=== PATIENT | female | born 1965 | race Caucasian/White ===

== ENCOUNTER 2024-05-13 21:28 | Day surgery (SDC) | payer BC, SELFPAY ==
[2024-05-13] VITALS (15 sets, daily range): BP systolic 116–142; BP diastolic 63–93; PULSE 46–69; RESP 16–24; TEMP 35.8; O2SAT 91–100; BMI 27.4
--- NOTE | 2024-05-13 21:49 | ED.GENADULT ---
HPI - General Adult General Chief complaint: Abdominal Pain Stated complaint: Abdominal pain Time Seen by Provider: 05/13/24 21:31 History of Present Illness HPI narrative: c/o upper abdominal pain started about 2 hours ago while at rest. started abruptly denies any N/V/D/F/C. today. 59-year-old woman presenting to the emergency department with nearly 3 hours of upper abdominal pain. Relatively abrupt onset. Has not been having stomach pains recently. No vomiting but is nauseated. No diarrhea. No constipation. No fever. This is intense pressure that she is feeling. It is not radicular though she starting to have some low back pain. She does have history of chronic low back pain and multiple surgeries. She is not having pain radiating into the lower abdomen or her legs. Does not drink alcohol. Only abdominal surgery was a . Related Data Home Medications ?Medication ?Instructions ?Recorded ?Confirmed apremilast 30 mg tablet (Otezla) 30 mg PO BID 05/13/24 05/13/24 levothyroxine 100 mcg tablet 100 mcg PO DAILY 05/13/24 05/13/24 (Synthroid) metformin 500 mg tablet,extended 500 mg PO BID 05/13/24 05/13/24 release 24 hr pravastatin 40 mg tablet 40 mg PO DAILY 05/13/24 05/13/24 Allergies Allergy/AdvReac Type Severity Reaction Status Date / Time Corticosteroids AdvReac Intermediate Verified 05/13/24 21:34 (Glucocorticoids) Penicillins AdvReac Vomiting Verified 05/13/24 21:34 Review of Systems Status of ROS: Reports: 6 or more systems reviewed and unremarkable except as noted in History and below [facility] Social History Smoking Status: Never smoker Second hand tobacco smoke exposure: No How often do you have a drink containing alcohol: never AUDIT-C Alcohol total score: 0 Non-prescribed substance use: denies use Exam Narrative: Exam Narrative: Pleasant. Labored in her breathing and writhing in apparent discomfort on the bed. Lips are little dry. Tattoo on right forearm. Skin otherwise warm and dry. No jaundice. No scleral icterus. Well-perfused. Heart in regular rate rhythm. Abdomen is soft. She is quite tender in the central aspect of the epigastrium. Not actually with right upper quadrant pain. Const: Vital Signs, click to edit/add: Vital Signs - 24 hr 05/13/24 21:37 05/13/24 22:21 05/13/24 22:22 Temperature 96.5 F L Pulse Rate 55 L 54 L Pulse Rate [Pulse Oximeter] 69 Respiratory Rate 24 Blood Pressure 133/78 Blood Pressure [Le ft Upper Arm] 142/93 H Pulse Oximetry 96 98 98 Oxygen Delivery Me thod Room Air 05/13/24 22:30 05/13/24 22:32 05/13/24 22:46 Temperature Pulse Rate 53 L 58 L 46 L Pulse Rate [Pulse Oximeter] Respiratory Rate Blood Pressure 141/66 H Blood Pressure [Le ft Upper Arm] Pulse Oximetry 100 100 96 Oxygen Delivery Me thod 05/13/24 22:47 05/13/24 23:00 05/13/24 23:01 Temperature Pulse Rate 53 L 55 L 55 L Pulse Rate [Pulse Oximeter] Respiratory Rate Blood Pressure 128/63 120/68 Blood Pressure [Le ft Upper Arm] Pulse Oximetry 94 91 Oxygen Delivery Me thod 05/13/24 23:02 05/13/24 23:28 05/13/24 23:30 Temperature Pulse Rate 60 65 64 Pulse Rate [Pulse Oximeter] Respiratory Rate Blood Pressure Blood Pressure [Le ft Upper Arm] Pulse Oximetry 91 93 91 Oxygen Delivery Me thod 05/13/24 23:32 05/13/24 23:45 05/13/24 23:47 Temperature Pulse Rate 58 L 59 L 61 Pulse Rate [Pulse Oximeter] Respiratory Rate 16 Blood Pressure 121/72 116/72 Blood Pressure [Le ft Upper Arm] Pulse Oximetry 94 96 91 Oxygen Delivery Me thod Room Air 05/14/24 00:00 05/14/24 00:02 05/14/24 00:02 Temperature Pulse Rate 58 L 50 L 50 L Pulse Rate [Pulse Oximeter] Respiratory Rate Blood Pressure 121/66 121/66 Blood Pressure [Le ft Upper Arm] Pulse Oximetry 96 93 93 Oxygen Delivery Me thod 05/14/24 00:02 05/14/24 00:15 Temperature Pulse Rate 50 L 58 L Pulse Rate [Pulse Oximeter] Respiratory Rate Blood Pressure 121/66 Blood Pressure [Le ft Upper Arm] Pulse Oximetry 93 91 Oxygen Delivery Me thod Documenting provider has reviewed patient's vital signs: yes Course Vital Signs Vital signs: Initial Vital Signs Temperature 96.5 F L 05/13/24 21:37 Temperature Source Temporal Artery Scan 05/13/24 21:37 Pulse Rate 69 05/13/24 21:37 Respiratory Rate 24 05/13/24 21:37 Blood Pressure 142/93 H 05/13/24 21:37 Blood Pressure Mean 109 H 05/13/24 21:37 Blood Pressure Position Supine 05/13/24 21:37 Pulse Oximetry 96 05/13/24 21:37 Oxygen Delivery Method Room Air 05/13/24 21:37 Vital Signs Temperature 96.5 F L 05/13/24 21:37 Pulse Rate 69 05/13/24 21:37 Respiratory Rate 24 05/13/24 21:37 Blood Pressure 142/93 H 05/13/24 21:37 Pulse Oximetry 96 05/13/24 21:37 Oxygen Delivery Method Room Air 05/13/24 21:37 Temperature 96.5 F L 05/13/24 21:37 Pulse Rate 58 L 05/14/24 00:15 Respiratory Rate 16 05/13/24 23:32 Blood Pressure 121/66 05/14/24 00:02 Pulse Oximetry 91 05/14/24 00:15 Oxygen Delivery Method Room Air 05/13/24 23:32 Medications Administered Medications: Generic Name Dose Route Start Last Admin Trade Name Freq PRN Reason Stop Dose Admin Hydromorphone HCl 0.5 mg 05/14/24 00:43 05/14/24 00:50 Hydromorphone 0.5 Mg/0.5 Ml Inj IVP 0.5 mg ONCE PRN Administration Pain Piperacillin Sod/Tazobactam 100 mls @ 200 mls/hr 05/14/24 01:46 05/14/24 02:00 Sod 3.375 gm/ Sodium Chloride IVPB 05/14/24 01:47 200 mls/hr ONCE ONE Administration Discontinued Medications Generic Name Dose Route Start Last Admin Trade Name Freq PRN Reason Stop Dose Admin Diphenhydramine HCl 12.5 mg 05/13/24 21:54 05/13/24 22:05 Diphenhydramine 50 Mg/Ml Inj IVP 05/13/24 21:55 12.5 mg ONCE ONE Administration Hydromorphone HCl 1 mg 05/13/24 22:27 05/13/24 22:31 Hydromorphone 0.5 Mg/0.5 Ml Inj IVP 05/13/24 22:28 1 mg ONCE ONE Administration Sodium Chloride 500 mls @ 1,000 mls/hr 05/13/24 21:54 05/13/24 22:45 0.9 % Sodium Chloride 500 Ml IV 05/13/24 22:23 Infused .Q30M ONE Infusion Morphine Sulfate 4 mg 05/13/24 21:54 05/13/24 22:08 Morphine 4 Mg/Ml Inj IVP 05/13/24 21:55 4 mg ONCE ONE Administration Ondansetron HCl 4 mg 05/13/24 21:54 05/13/24 22:08 Ondansetron 2 Mg/Ml Inj IVP 05/13/24 21:55 4 mg ONCE ONE Administration Medical Decision Making MDM Narrative Medical decision making narrative: First in differential would be gallbladder disease in biliary colic. Suppose this could be pancreatitis as well. Does not sound as though has typical risk factors here though. This could be cardiac in etiology. Maybe a dissection. Ulcer? Try to get her more comfortable. Place IV. Start with morphine and diphenhydramine given severe nausea with oxycodone in the past, Zofran as well. Labs with follow-up appropriate imaging. On reassessment morphine was not particularly helpful of pain. Ordered then for mg of Dilaudid. This is very helpful. White count is not elevated and neither are transaminases. Lipase pending. Requested abdomen pelvis contrasted CT scan at this point considering differential as above. I did review these images personally. Appears to have some pericholecystic fluid/edema. Radiology over-read as below TECHNIQUE: CT Abdomen and pelvis with i.v. contrast. Coronal and sagittal reformats were obtained. CONTRAST: 83 mL Isovue 370 COMPARISON: 11/13/2020 FINDINGS: Lower chest: Unremarkable. Liver: Unremarkable. Spleen: Unremarkable. Pancreas: Unremarkable. Gallbladder: The gallbladder is unremarkable in appearance but there is suspected trace pericholecystic fluid interposed between the gallbladder and the liver. Kidney: Unremarkable. No kidney or ureteral stones or obstruction seen. Adrenal: Unremarkable. Bowel: Severe diverticulosis of the sigmoid colon is present with no evidence of diverticulitis. The appendix is normal in appearance and size. Vascular: Unremarkable. Lymph: Unremarkable. Peritoneum: Unremarkable. No pneumoperitoneum is seen. No significant ascites is noted. Pelvis: Unremarkable. Soft tissue: Unremarkable. Bone: Anterior and posterior spinal fusion of L5-S1 is noted. IMPRESSION: 1. The gallbladder is unremarkable in appearance but there is suspected trace pericholecystic fluid interposed between the gallbladder and the liver. If there is pain or tenderness in the right upper quadrant, assessment with ultrasound is recommended. Will try to characterize this further with ultrasound. Might need another dosing of pain medication as had appears to be creeping up Discussed findings with boot and shoe repairman. Did personally also review images. Prelim noting rather thickened gallbladder wall and a sludge pile of some sort at the gallbladder neck. Formal measurements pending. TECHNIQUE: Ultrasound abdomen limited. COMPARISON: Same day CT abdomen and pelvis. FINDINGS: Gallbladder: Echogenic dependent gallbladder lesion measuring up to 8 mm. No hypervascular stalk demonstrated. No definite posterior shadowing. No images definitely demonstrating mobility. Gallbladder wall thickening measuring up to 5 mm. Trace pericholecystic fluid. Concrete Curer does not comment on sonographic Murry`s sign. Common bile duct: 6.5 mm. No sonographically apparent choledocholithiasis. IMPRESSION: 1. Echogenic dependent gallbladder lesion measuring up to 8 mm that is favored to represent a small polyp, less likely cholelithiasis. 2. Gallbladder wall thickening with trace pericholecystic fluid, which is nonspecific and could be secondary to acute cholecystitis, patient hydration status, or underlying hepatic disease. Concrete Curer does not comment on sonographic Murry`s sign. HIDA scan could be considered to more definitively rule in/out acute cholecystitis. 3. Prominent CBD, but no sonographic evidence of choledocholithiasis. Have discussed all findings with on-call surgeon. Appears to have cholecystitis. Anticipating admission for likely cholecystectomy in the morning. Hospitalist accepting. Test-dosing Zosyn given allergy which so far has not resulted in any reaction. Medical Records Medical records reviewed: Yes I reviewed the patient's medical records Lab Data Lab results reviewed: Yes I reviewed the patient's lab results Labs: Lab Results 05/13/24 05/13/24 05/14/24 Range/Units 22:00 22:47 01:15 WBC 6.74 (4.50-11.00) K/uL RBC 5.09 (4.00-5.20) m/uL Hgb 14.1 (12.0-16.0) gm/dL Hct 43.7 (33.0-51.0) % MCV 86 (80-100) fL MCH 28 (26-34) pg MCHC 32 (32-36) gm/dL RDW Coeff of Tricia 13.4 (11.5-15.5) % Plt Count 234 (140-440) K/uL Neut % (Auto) 52.2 (42.0-72.0) % Lymph % (Auto) 34.1 (20-44) % [place] % (Auto) 10.5 (0.0-11.0) % Eos % (Auto) 2.1 (0.0-7.0) % Baso % (Auto) 0.7 (0.0-3.0) % Neut # (Auto) 3.51 (1.7-7.0) K/uL Lymph # (Auto) 2.30 (0.90-2.90) K/uL [place] # (Auto) 0.70 (0.00-0.90) K/UL Eos # (Auto) 0.14 (0.00-0.50) K/uL Baso # (Auto) 0.05 (0.00-0.30) K/uL Abs Immat Gran (auto) 0.03 (0.00-0.30) K/uL Imm/Tot Granulo (auto) 0.4 % D-Dimer Quant (PE/DVT) 0.33 (0.00-0.50) ug/ml Sodium 139 (135-149) mmol/L Potassium 3.9 (3.6-5.1) mmol/L Chloride 107 (96-114) mmol/L Carbon Dioxide 21 (20-32) mmol/L Anion Gap 11 (7-15) mEq/L BUN 17 (7-30) mg/dL Creatinine 0.7 (0.5-1.5) mg/dL Estimated Creat Clear 55.31 Estimated GFR 98 ml/min Glucose 161 H (60-115) mg/dL Calcium 9.7 (8.4-10.6) mg/dL Total Bilirubin 0.1 (0.1-1.5) mg/dL Direct Bilirubin 0.1 (0.0-0.5) mg/dL AST 19 (12-35) U/L ALT 17 (4-35) U/L Alkaline Phosphatase 131 (40-150) U/L Troponin I < 0.01 L (0.01-0.04) ng/mL Total Protein 7.2 (6.0-8.3) g/dL Albumin 4.4 (3.3-5.0) g/dL Lipase 193 (23-300) U/L Urine Color Yellow (Yellow) Urine Appearance Clear (Clear) Urine pH 7.5 (5.0-8.5) Ur Specific [place] 1.020 (1.000-1.030) Urine Protein Negative (Negative) Urine Glucose (UA) Negative (Negative) Urine Ketones Trace A (Negative) Urine Blood Trace-intact A (Negative) Urine Nitrite Negative (Negative) Urine Bilirubin Negative (Negative) Urine Urobilinogen 0.2 (0.2-1.0) Ur Leukocyte Esterase Negative (Negative) Urine RBC 0-2 (0-2) Urine WBC 0-2 (0-5) Ur Squamous Epith Cells Few (None-Few) Amorphous Sediment Moderate A (None) Urine Bacteria None (None) Lab Acknowledgement Test Added Test Added Discharge Plan Discharge Clinical Impression: Acute cholecystitis, Abdominal pain Patient Disposition: Admitted As Observation Condition: Stable
[2024-05-13] MEDS: diphenhydrAMINE 50 MG/ML inj 12.5 MG IVP (22:05)
[2024-05-13] MEDS: ONDANSETRON 2 MG/ML inj 4 MG IVP (22:08)
[2024-05-13] MEDS: MORPHINE 4 MG/ML INJ IVP (22:08)
[2024-05-13] MEDS: 0.9 % SODIUM CHLORIDE 500 ML 500 ML 1000 ML IV (22:14)
[2024-05-13 22:29] LABS: Albumin* 4.4 g/dL (3.3-5.0)
[2024-05-13 22:30] LABS: Chloride* 107 mmol/L (96-114); Potassium* 3.9 mmol/L (3.6-5.1); Sodium* 139 mmol/L (135-149)
[2024-05-13] MEDS: HYDROmorphone 0.5 mg/0.5 ml inj 1 MG IVP (22:31)
[2024-05-13 22:32] LABS: Creatinine* 0.7 mg/dL (0.5-1.5); Est. Creatinine Clearance* 55.31; Estimated Glomerular Filt Rate 98 ml/min
[2024-05-13 22:33] LABS: Alanine Aminotransferase* 17 U/L (4-35); Alkaline Phosphatase* 131 U/L (40-150); Anion Gap 11 mEq/L (7-15); Aspartate Amino Transferase* 19 U/L (12-35); Bilirubin Direct* 0.1 mg/dL (0.0-0.5); Bilirubin Total* 0.1 mg/dL (0.1-1.5); Blood Urea Nitrogen* 17 mg/dL (7-30); Carbon Dioxide* 21 mmol/L (20-32); Glucose* 161 mg/dL (60-115); Total Protein* 7.2 g/dL (6.0-8.3)
[2024-05-13 22:34] LABS: Calcium* 9.7 mg/dL (8.4-10.6)
[2024-05-13 22:36] LABS: Basophils Absolute Auto 0.05 K/uL (0.00-0.30); Basophils Percent Auto 0.7 % (0.0-3.0); Eosinophils Absolute Auto 0.14 K/uL (0.00-0.50); Eosinophils Percent Auto 2.1 % (0.0-7.0); Hematocrit 43.7 % (33.0-51.0); Hemoglobin* 14.1 gm/dL (12.0-16.0); Immature Granulocytes Abs Auto 0.03 K/uL (0.00-0.30); Immature Granulocytes Pct Auto 0.4 %; Lymphocytes Percent Auto 34.1 % (20-44); Mean Corpuscular HGB Conc 32 gm/dL (32-36); Mean Corpuscular Hemoglobin 28 pg (26-34); Mean Corpuscular Volume 86 fL (80-100); Monocytes Percent Auto 10.5 % (0.0-11.0); Neutrophils Absolute Auto 3.51 K/uL (1.7-7.0); Neutrophils Percent Auto 52.2 % (42.0-72.0); Platelet Count* 234 K/uL (140-440); RDW Coefficient of Variation % 13.4 % (11.5-15.5); Red Blood Count 5.09 m/uL (4.00-5.20); White Blood Count* 6.74 K/uL (4.50-11.00)
[2024-05-13 22:42] LABS: Slide Review Reflex No
--- NOTE | 2024-05-13 22:48 | CRLHL7_ITS ---
For Patients: As a result of the Century Cures Act, medical imaging exams and procedure reports are released immediately into your electronic medical record. You may view this report before your referring provider. If you have questions, please contact your health care provider. INDICATION: Severe epigastric abdominal pelvic pain TECHNIQUE: CT Abdomen and pelvis with i.v. contrast. Coronal and sagittal reformats were obtained. CONTRAST: 83 mL Isovue 370 COMPARISON: 11/13/2020 FINDINGS: Lower chest: Unremarkable. Liver: Unremarkable. Spleen: Unremarkable. Pancreas: Unremarkable. Gallbladder: The gallbladder is unremarkable in appearance but there is suspected trace pericholecystic fluid interposed between the gallbladder and the liver. Kidney: Unremarkable. No kidney or ureteral stones or obstruction seen. Adrenal: Unremarkable. Bowel: Severe diverticulosis of the sigmoid colon is present with no evidence of diverticulitis. The appendix is normal in appearance and size. Vascular: Unremarkable. Lymph: Unremarkable. Peritoneum: Unremarkable. No pneumoperitoneum is seen. No significant ascites is noted. Pelvis: Unremarkable. Soft tissue: Unremarkable. Bone: Anterior and posterior spinal fusion of L5-S1 is noted. IMPRESSION: 1. The gallbladder is unremarkable in appearance but there is suspected trace pericholecystic fluid interposed between the gallbladder and the liver. If there is pain or tenderness in the right upper quadrant, assessment with ultrasound is recommended. Dictated by Levi Johnston MD @ 05/13/2024 11:34:28 PM Please note that all CT scans at this facility use dose modulation, iterative reconstruction, and/or weight-based dosing when appropriate to reduce radiation dose to as low as reasonably achievable. Dictated by: Levi Johnston MD @ 05/13/2024 23:34:37 (Electronically Signed)
[2024-05-13 23:13] LABS: Troponin I* < 0.01 ng/mL (0.01-0.04)
[2024-05-13 23:28] LABS: Appearance Urine Clear (Clear); Bilirubin Urine Negative (Negative); Blood Urine Trace-intact (Negative); Color Urine Yellow (Yellow); Glucose Urine Negative (Negative); Ketones Urine Trace (Negative); Leukocyte Esterase Urine Negative (Negative); Nitrite Urine Negative (Negative); Protein Urine Negative (Negative); Urobilinogen Urine 0.2 (0.2-1.0); pH Urine 7.5 (5.0-8.5)
[2024-05-13 23:40] LABS: D Dimer Quantitative* 0.33 ug/ml (0.00-0.50)
[2024-05-13 23:48] LABS: RBC Urine 0-2 (0-2); Squamous Epithelial Cell Urine Few (None-Few); WBC Urine 0-2 (0-5)
--- NOTE | 2024-05-13 23:48 | CRLHL7_ITS ---
For Patients: As a result of the Century Cures Act, medical imaging exams and procedure reports are released immediately into your electronic medical record. You may view this report before your referring provider. If you have questions, please contact your health care provider. INDICATION: Abdomen pain. TECHNIQUE: Ultrasound abdomen limited. COMPARISON: Same day CT abdomen and pelvis. FINDINGS: Gallbladder: Echogenic dependent gallbladder lesion measuring up to 8 mm. No hypervascular stalk demonstrated. No definite posterior shadowing. No images definitely demonstrating mobility. Gallbladder wall thickening measuring up to 5 mm. Trace pericholecystic fluid. Appliance Service Technician does not comment on sonographic Murry`s sign. Common bile duct: 6.5 mm. No sonographically apparent choledocholithiasis. IMPRESSION: 1. Echogenic dependent gallbladder lesion measuring up to 8 mm that is favored to represent a small polyp, less likely cholelithiasis. 2. Gallbladder wall thickening with trace pericholecystic fluid, which is nonspecific and could be secondary to acute cholecystitis, patient hydration status, or underlying hepatic disease. Appliance Service Technician does not comment on sonographic Murry`s sign. HIDA scan could be considered to more definitively rule in/out acute cholecystitis. 3. Prominent CBD, but no sonographic evidence of choledocholithiasis. Dictated by Perry Burnham MD @ 05/14/2024 1:32:57 AM (Electronically Signed)
[2024-05-13 23:49] LABS: Amorphous Sediment Urine Moderate
[2024-05-14] VITALS (21 sets, daily range): BP systolic 106–147; BP diastolic 51–96; PULSE 40–71; RESP 14–18; TEMP 35.8–36.8; O2SAT 91–99; BMI 28.8
[2024-05-14] MEDS: HYDROmorphone 0.5 mg/0.5 ml inj IVP ×3 (00:50→22:02)
[2024-05-14 01:25] LABS: Lipase* 193 U/L (23-300)
[2024-05-14] MEDS: PIPERACILLIN/TAZOBACTAM 3.375 GM in 0.9 % SODIUM CHLORIDE Mini-bag 100 ML IVPB ×4 (02:00→20:12)
--- NOTE | 2024-05-14 04:50 | W.PM.THH&P_ITS ---
Telehealth- H&P: HPI History of Present Illness Date Seen: 05/14/24 Chief complaint: Abdominal pain Narrative: Catie Avila is seen as an Interactive Telehealth visit. Catie Avila is a 59 year old female with PMHx Significant for type 2 diabetes on metformin, hypothyroidism, hyperlipidemia, Psoriatic arthritis who presented to emergency department with complaints of abdominal pain. Patient reports abdominal pain started this evening around 6:30 PM. She said it initially started as a tolerable pain. She initially thought she ate out for lunch and probably has food poisoning however she did not have any nausea vomiting or diarrhea. She says pain then continued to progress to the point where it became intolerable. She says her partner came home around 9 PM and at that time she was in a lot more pain and decided to come in for further evaluation. She denies any fever or chills. No nausea or vomiting. Abdominal pain is more midepigastric and to the right side. Workup in the emergency department showed WBC 6.74, hemoglobin 14.1, hematocrit 43.7, platelets 234. Sodium 139, potassium 3.9, chloride 107, CO2 21, anion gap 11, BUN 17, creatinine 0.7, glucose 161, calcium 9.7. Review of Systems Narrative: Complete ROS was performed, pertinent positives and negatives per HPI. [facility] Social History What is your current living situation?: I presently have a place to live Problems where you live: no known problems In the past 12 months, utilities in danger of being shut off: no In the past 12 mos, have been you worried that your food would run out before you had money to buy more?: never true In the past 12 mos, the food you bought just didn't last and you didn't have money to buy more?: never true Highest level of school completed/degree received: Bachelor's degree Smoking Status: Never smoker Second hand tobacco smoke exposure: No How often do you have a drink containing alcohol: never AUDIT-C Alcohol total score: 0 Non-prescribed substance use: denies use Caffeine: Yes (diet coke) How often does anyone, including family, friends and others, physically hurt you : never How often does anyone, including family, friends and others, insult or talk down to you: never How often does anyone, including family, friends and others, threaten you with harm: never How often does anyone, including family, friends and others, scream or curse at you: never service: No Meds Home Medications and Allergies Home Medications ?Medication ?Instructions ?Recorded ?Confirmed ?Type apremilast 30 mg tablet (Otezla) 30 mg PO BID 05/13/24 05/13/24 History levothyroxine 100 mcg tablet 100 mcg PO DAILY 05/13/24 05/13/24 History (Synthroid) metformin 500 mg tablet,extended 500 mg PO BID 05/13/24 05/13/24 History release 24 hr pravastatin 40 mg tablet 40 mg PO DAILY 05/13/24 05/13/24 History Allergies Allergy/AdvReac Type Severity Reaction Status Date / Time Corticosteroids AdvReac Intermediate Verified 05/13/24 21:34 (Glucocorticoids) Penicillins AdvReac Vomiting Verified 05/13/24 21:34 Exam Narrative Exam Narrative: Physical Exam GENERAL: ?vital signs reviewed, well developed and nourished, in no distress HEENT: pupils are equal round and reactive to light, extraocular movements are grossly within normal limits and oral mucosa is moist. NECK: Supple without lymphadenopathy or thyromegaly according to nursing staff examination observation HEART: Regular rate and rhythm without any rubs, murmurs, or gallops. LUNGS: Clear to auscultation bilaterally with good air movement throughout ABDOMEN: Observation from nurse assisted exam, abdomen appears soft, + tenderness on mid epigastric area. no rebound /guarding EXTREMITIES: Strength and sensation is observed to be grossly within normal limits in the upper and lower extremities.? No focal strength deficit is observed. SKIN:? Observed warm and dry with color normal Const Vital Signs, click to edit/add: Vital Signs - 24 hr 05/13/24 21:37 05/13/24 22:21 05/13/24 22:22 Temperature 96.5 F L Pulse Rate 55 L 54 L Pulse Rate [Pulse Oximeter] 69 Respiratory Rate 24 Blood Pressure 133/78 Blood Pressure [Left Upper Arm] 142/93 H Blood Pressure [Right Arm] Pulse Oximetry 96 98 98 Oxygen Delivery Method Room Air 05/13/24 22:30 05/13/24 22:32 05/13/24 22:46 Temperature Pulse Rate 53 L 58 L 46 L Pulse Rate [Pulse Oximeter] Respiratory Rate Blood Pressure 141/66 H Blood Pressure [Left Upper Arm] Blood Pressure [Right Arm] Pulse Oximetry 100 100 96 Oxygen Delivery Method 05/13/24 22:47 05/13/24 23:00 05/13/24 23:01 Temperature Pulse Rate 53 L 55 L 55 L Pulse Rate [Pulse Oximeter] Respiratory Rate Blood Pressure 128/63 120/68 Blood Pressure [Left Upper Arm] Blood Pressure [Right Arm] Pulse Oximetry 94 91 Oxygen Delivery Method 05/13/24 23:02 05/13/24 23:28 05/13/24 23:30 Temperature Pulse Rate 60 65 64 Pulse Rate [Pulse Oximeter] Respiratory Rate Blood Pressure Blood Pressure [Left Upper Arm] Blood Pressure [Right Arm] Pulse Oximetry 91 93 91 Oxygen Delivery Method 05/13/24 23:32 05/13/24 23:45 05/13/24 23:47 Temperature Pulse Rate 58 L 59 L 61 Pulse Rate [Pulse Oximeter] Respiratory Rate 16 Blood Pressure 121/72 116/72 Blood Pressure [Left Upper Arm] Blood Pressure [Right Arm] Pulse Oximetry 94 96 91 Oxygen Delivery Method Room Air 05/14/24 00:00 05/14/24 00:02 05/14/24 00:02 Temperature Pulse Rate 58 L 50 L 50 L Pulse Rate [Pulse Oximeter] Respiratory Rate Blood Pressure 121/66 121/66 Blood Pressure [Left Upper Arm] Blood Pressure [Right Arm] Pulse Oximetry 96 93 93 Oxygen Delivery Method 05/14/24 00:02 05/14/24 00:15 05/14/24 02:26 Temperature 96.5 F L Pulse Rate 50 L 58 L Pulse Rate [Pulse Oximeter] 71 Respiratory Rate 16 Blood Pressure 121/66 Blood Pressure [Left Upper Arm] 123/74 Blood Pressure [Right Arm] Pulse Oximetry 93 91 91 Oxygen Delivery Method Room Air 05/14/24 02:26 05/14/24 02:52 05/14/24 02:52 Temperature 98.0 F 97.5 F L Pulse Rate Pulse Rate [Pulse Oximeter] 71 61 Respiratory Rate 16 16 16 Blood Pressure Blood Pressure [Left Upper Arm] 123/74 Blood Pressure [Right Arm] 143/60 H Pulse Oximetry 96 96 Oxygen Delivery Method Room Air Room Air Hospitalist - H&P: Result Labs Labs: Short CBC 05/13/24 Range/Units 22:00 WBC 6.74 (4.50-11.00) K/uL Hgb 14.1 (12.0-16.0) gm/dL Hct 43.7 (33.0-51.0) % Plt Count 234 (140-440) K/uL BMP 05/13/24 22:00 Sodium 139 Potassium 3.9 Chloride 107 Carbon Dioxide 21 BUN 17 Creatinine 0.7 Glucose 161 H Calcium 9.7 Cardiac Enzymes 05/13/24 Range/Units 22:00 Troponin I < 0.01 L (0.01-0.04) ng/mL Liver Function 05/13/24 Range/Units 22:00 Total Bilirubin 0.1 (0.1-1.5) mg/dL Direct Bilirubin 0.1 (0.0-0.5) mg/dL AST 19 (12-35) U/L ALT 17 (4-35) U/L Alkaline Phosphatase 131 (40-150) U/L Albumin 4.4 (3.3-5.0) g/dL Urine 05/13/24 Range/Units 22:00 Urine Color Yellow (Yellow) Urine Appearance Clear (Clear) Urine pH 7.5 (5.0-8.5) Ur Specific [place] 1.020 (1.000-1.030) Urine Protein Negative (Negative) Urine Glucose (UA) Negative (Negative) Assessment and Plan Assessment and plan (1) Acute cholecystitis: Status: Acute Plan Patient is a 59-year-old female with past medical history significant for type 2 diabetes, HLP, hypothyroidism and Psoriatec arthritis presenting to the emergency department with complaints of acute onset abdominal pain. Initially CT scan showed gallbladder was unremarkable however suspected trace pericholecystic fluid interposed between gallbladder and liver. And recommended ultrasound. Ultrasound was done and showed echogenic dependent gallbladder lesion measuring up to 8 mm that is favored to represent a small polyp less likely cholelithiasis. Gallbladder wall thickening with trace pericholecystic fluid which is nonspecific and could be secondary to acute Charisse or underlying hepatic disease. HIDA scan could be considered to more definitely rule in or out acute cholecystitis. Prominent CBD but no sonographic evidence of choledocho lithiasis. General surgery was consulted by ER. # Acute cholecystitis - cont with NPO, IV fluids, pain management. - general surgery consult for further HIDA scan vs to proceed with surgery. - repeat LFT in am. # Type 2 DM - hold metformin - cont with sliding scale # Hypothyroidism # Psoriatic Arthritis # HLP - resume home meds when verified in am. # DVT proph - hold off anticipating general surgery. Telehealth: Statement Statement Telehealth Visit: Today's History and Physical is provided via interactive telehealth by Hilary Clark MD.? Patient is located at [facility].? Provider is located at [facility].? Nursing staff assisted with the patient's exam. The visit being done today meets criteria for a telehealth visit and the patient or patient?s parent/guardian is aware the visit is a telehealth visit. Camera Start Time: 04:32 Camera End Time: 04:44
--- NOTE | 2024-05-14 05:07 | W.PM.TELEH&P ---
Telehealth- H&P: HPI History of Present Illness Date Seen: 05/14/24 Chief complaint: Abdominal pain Narrative: Catie Avila is seen as an Interactive Telehealth visit. Catie Avila is a 59 year old male who is [facility] Social History What is your current living situation?: I presently have a place to live Problems where you live: no known problems In the past 12 months, utilities in danger of being shut off: no In the past 12 mos, have been you worried that your food would run out before you had money to buy more?: never true In the past 12 mos, the food you bought just didn't last and you didn't have money to buy more?: never true Highest level of school completed/degree received: Bachelor's degree Smoking Status: Never smoker Second hand tobacco smoke exposure: No How often do you have a drink containing alcohol: never AUDIT-C Alcohol total score: 0 Non-prescribed substance use: denies use Caffeine: Yes (diet coke) How often does anyone, including family, friends and others, physically hurt you: never How often does anyone, including family, friends and others, insult or talk down to you: never How often does anyone, including family, friends and others, threaten you with harm: never How often does anyone, including family, friends and others, scream or curse at you: never service: No Meds Home Medications and Allergies Home Medications ?Medication ?Instructions ?Recorded ?Confirmed ?Type apremilast 30 mg tablet (Otezla) 30 mg PO BID 05/13/24 05/13/24 History levothyroxine 100 mcg tablet 100 mcg PO DAILY 05/13/24 05/13/24 History (Synthroid) metformin 500 mg tablet,extended 500 mg PO BID 05/13/24 05/13/24 History release 24 hr pravastatin 40 mg tablet 40 mg PO DAILY 05/13/24 05/13/24 History Allergies Allergy/AdvReac Type Severity Reaction Status Date / Time Corticosteroids AdvReac Intermediate Verified 05/13/24 21:34 (Glucocorticoids) Penicillins AdvReac Vomiting Verified 05/13/24 21:34 Exam Narrative Exam Narrative: Physical Exam GENERAL: ?vital signs reviewed, well developed and nourished, in no distress HEENT: pupils are equal round and reactive to light, extraocular movements are grossly within normal limits and oral mucosa is moist. NECK: Supple without lymphadenopathy or thyromegaly according to nursing staff examination observation HEART: Regular rate and rhythm without any rubs, murmurs, or gallops. LUNGS: Clear to auscultation bilaterally with good air movement throughout ABDOMEN: Observation from nurse assisted exam, abdomen appears soft, nontender, and nondistended with Positive bowel sounds noted. EXTREMITIES: Strength and sensation is observed to be grossly within normal limits in the upper and lower extremities.? No focal strength deficit is observed. SKIN:? Observed warm and dry with color normal Const Vital Signs, click to edit/add: Vital Signs - 24 hr 05/13/24 21:37 05/13/24 22:21 05/13/24 22:22 Temperature 96.5 F L Pulse Rate 55 L 54 L Pulse Rate [Pulse Oximeter] 69 Respiratory Rate 24 Blood Pressure 133/78 Blood Pressure [Left Upper Arm] 142/93 H Blood Pressure [Right Arm] Pulse Oximetry 96 98 98 Oxygen Delivery Method Room Air 05/13/24 22:30 05/13/24 22:32 05/13/24 22:46 Temperature Pulse Rate 53 L 58 L 46 L Pulse Rate [Pulse Oximeter] Respiratory Rate Blood Pressure 141/66 H Blood Pressure [Left Upper Arm] Blood Pressure [Right Arm] Pulse Oximetry 100 100 96 Oxygen Delivery Method 05/13/24 22:47 05/13/24 23:00 05/13/24 23:01 Temperature Pulse Rate 53 L 55 L 55 L Pulse Rate [Pulse Oximeter] Respiratory Rate Blood Pressure 128/63 120/68 Blood Pressure [Left Upper Arm] Blood Pressure [Right Arm] Pulse Oximetry 94 91 Oxygen Delivery Method 05/13/24 23:02 05/13/24 23:28 05/13/24 23:30 Temperature Pulse Rate 60 65 64 Pulse Rate [Pulse Oximeter] Respiratory Rate Blood Pressure Blood Pressure [Left Upper Arm] Blood Pressure [Right Arm] Pulse Oximetry 91 93 91 Oxygen Delivery Method 05/13/24 23:32 05/13/24 23:45 05/13/24 23:47 Temperature Pulse Rate 58 L 59 L 61 Pulse Rate [Pulse Oximeter] Respiratory Rate 16 Blood Pressure 121/72 116/72 Blood Pressure [Left Upper Arm] Blood Pressure [Right Arm] Pulse Oximetry 94 96 91 Oxygen Delivery Method Room Air 05/14/24 00:00 05/14/24 00:02 05/14/24 00:02 Temperature Pulse Rate 58 L 50 L 50 L Pulse Rate [Pulse Oximeter] Respiratory Rate Blood Pressure 121/66 121/66 Blood Pressure [Left Upper Arm] Blood Pressure [Right Arm] Pulse Oximetry 96 93 93 Oxygen Delivery Method 05/14/24 00:02 05/14/24 00:15 05/14/24 02:26 Temperature 96.5 F L Pulse Rate 50 L 58 L Pulse Rate [Pulse Oximeter] 71 Respiratory Rate 16 Blood Pressure 121/66 Blood Pressure [Left Upper Arm] 123/74 Blood Pressure [Right Arm] Pulse Oximetry 93 91 91 Oxygen Delivery Method Room Air 05/14/24 02:26 05/14/24 02:52 05/14/24 02:52 Temperature 98.0 F 97.5 F L Pulse Rate Pulse Rate [Pulse Oximeter] 71 61 Respiratory Rate 16 16 16 Blood Pressure Blood Pressure [Left Upper Arm] 123/74 Blood Pressure [Right Arm] 143/60 H Pulse Oximetry 96 96 Oxygen Delivery Method Room Air Room Air Hospitalist - H&P: Result Labs Labs: Short CBC 05/13/24 Range/Units 22:00 WBC 6.74 (4.50-11.00) K/uL Hgb 14.1 (12.0-16.0) gm/dL Hct 43.7 (33.0-51.0) % Plt Count 234 (140-440) K/uL BMP 05/13/24 22:00 Sodium 139 Potassium 3.9 Chloride 107 Carbon Dioxide 21 BUN 17 Creatinine 0.7 Glucose 161 H Calcium 9.7 Cardiac Enzymes 05/13/24 Range/Units 22:00 Troponin I < 0.01 L (0.01-0.04) ng/mL Liver Function 05/13/24 Range/Units 22:00 Total Bilirubin 0.1 (0.1-1.5) mg/dL Direct Bilirubin 0.1 (0.0-0.5) mg/dL AST 19 (12-35) U/L ALT 17 (4-35) U/L Alkaline Phosphatase 131 (40-150) U/L Albumin 4.4 (3.3-5.0) g/dL Urine 05/13/24 Range/Units 22:00 Urine Color Yellow (Yellow) Urine Appearance Clear (Clear) Urine pH 7.5 (5.0-8.5) Ur Specific [place] 1.020 (1.000-1.030) Urine Protein Negative (Negative) Urine Glucose (UA) Negative (Negative) Assessment and Plan Assessment and plan (1) Acute cholecystitis: Status: Acute Telehealth: Statement Statement Telehealth Visit: Today's History and Physical is provided via interactive telehealth by Hilary Clark MD.? Patient is located at [facility].? Provider is located at [facility].? Nursing staff assisted with the patient's exam. The visit being done today meets criteria for a telehealth visit and the patient or patient?s parent/guardian is aware the visit is a telehealth visit.
[2024-05-14] MEDS: 0.9 % SODIUM CHLORIDE 1000 ml 1,000 ML 75 ML IV ×2 (05:25→19:31)
[2024-05-14] MEDS: LEVOTHYROXINE 100 MCG TABLET PO (05:31)
--- NOTE | 2024-05-14 06:25 | PC.NURSE ---
End of shift: Pt AxOx4, cooperative, and pleasant. Pt arrived to the unit @ 0216. Pt indep in room. Afebrile. Pt denies pain to the abdomen throughout shift. Pt IV to the L AC running @ 75 ml. Pt continent of the bladder. Pt tolerating NPO diet well, awaiting possible sx. Pt appears resting with call light in reach.
[2024-05-14 07:19] LABS: Basophils Absolute Auto 0.05 K/uL (0.00-0.30); Basophils Percent Auto 0.8 % (0.0-3.0); Eosinophils Absolute Auto 0.11 K/uL (0.00-0.50); Eosinophils Percent Auto 1.8 % (0.0-7.0); Hematocrit 39.5 % (33.0-51.0); Hemoglobin* 12.3 gm/dL (12.0-16.0); Immature Granulocytes Abs Auto 0.04 K/uL (0.00-0.30); Immature Granulocytes Pct Auto 0.7 %; Lymphocytes Absolute Auto 1.66 K/uL (0.90-2.90); Lymphocytes Percent Auto 27.1 % (20-44); Mean Corpuscular HGB Conc 31 gm/dL (32-36); Mean Corpuscular Hemoglobin 28 pg (26-34); Mean Corpuscular Volume 89 fL (80-100); Monocytes Percent Auto 10.9 % (0.0-11.0); Neutrophils Percent Auto 58.7 % (42.0-72.0); Platelet Count* 168 K/uL (140-440); RDW Coefficient of Variation % 13.5 % (11.5-15.5); Red Blood Count 4.46 m/uL (4.00-5.20); White Blood Count* 6.13 K/uL (4.50-11.00)
[2024-05-14 07:21] LABS: Slide Review Reflex No
[2024-05-14 07:25] LABS: Chloride* 108 mmol/L (96-114)
[2024-05-14 07:26] LABS: Potassium* 4.2 mmol/L (3.6-5.1); Sodium* 140 mmol/L (135-149)
[2024-05-14 07:28] LABS: Anion Gap 4 mEq/L (7-15); Aspartate Amino Transferase* 17 U/L (12-35); Bilirubin Direct* 0.1 mg/dL (0.0-0.5); Bilirubin Total* 0.1 mg/dL (0.1-1.5); Blood Urea Nitrogen* 14 mg/dL (7-30); Carbon Dioxide* 28 mmol/L (20-32); Creatinine* 0.7 mg/dL (0.5-1.5); Est. Creatinine Clearance* 55.31; Estimated Glomerular Filt Rate 98 ml/min
[2024-05-14 07:29] LABS: Alanine Aminotransferase* 15 U/L (4-35); Calcium* 8.9 mg/dL (8.4-10.6); Glucose* 102 mg/dL (60-115)
[2024-05-14] MEDS: HYDROmorphone 0.5 mg/0.5 ml inj 0.4 MG IVP (10:28)
[2024-05-14] MEDS: ONDANSETRON 2 MG/ML inj 4 MG IVP (10:28)
[2024-05-14] MEDS: ACETAMINOPHEN 325 MG TABLET 650 MG PO (14:10)
--- NOTE | 2024-05-14 14:23 | PM.GSCN ---
History of Present Illness Consult details Date Seen: 05/14/24 Consult date: 05/14/24 Narrative: Patient presented to the emergency department last night for severe epigastric and right-sided abdominal pain. She started to feel the pain yesterday while she was cooking dinner. She was able to eat some sloppy [employer], but had severe pain afterwards. She was unable to get comfortable and the pain intensified, bringing her into the emergency department. Does report some associated nausea, no emesis. No fevers. Overall she does try to eat healthy and does not drink alcohol. She has never had pain like this before. Her abdominal surgical history is positive for . History of several back surgeries. She is otherwise healthy and here with her , who is very supportive. Review of Systems Status of ROS: Reports: 10 or more systems reviewed and unremarkable except as noted in History and below [facility], [facility] Social History What is your current living situation?: I presently have a place to live Problems where you live: no known problems In the past 12 months, utilities in danger of being shut off: no In the past 12 mos, have been you worried that your food would run out before you had money to buy more?: never true In the past 12 mos, the food you bought just didn't last and you didn't have money to buy more?: never true Highest level of school completed/degree received: Bachelor's degree Smoking Status: Never smoker Second hand tobacco smoke exposure: No How often do you have a drink containing alcohol: never AUDIT-C Alcohol total score: 0 Non-prescribed substance use: denies use Caffeine: Yes (diet coke) How often does anyone, including family, friends and others, physically hurt you: never How often does anyone, including family, friends and others, insult or talk down to you: never How often does anyone, including family, friends and others, threaten you with harm: never How often does anyone, including family, friends and others, scream or curse at you: never service: No Meds Home Medications and Allergies Home Medications ?Medication ?Instructions ?Recorded ?Confirmed ?Type apremilast 30 mg tablet (Otezla) 30 mg PO BID 05/13/24 05/13/24 History levothyroxine 100 mcg tablet 100 mcg PO DAILY 05/13/24 05/13/24 History (Synthroid) metformin 500 mg tablet,extended 500 mg PO BID 05/13/24 05/13/24 History release 24 hr pravastatin 40 mg tablet 40 mg PO DAILY 05/13/24 05/13/24 History Allergies Allergy/AdvReac Type Severity Reaction Status Date / Time Corticosteroids AdvReac Intermediate Verified 05/13/24 21:34 (Glucocorticoids) Penicillins AdvReac Vomiting Verified 05/13/24 21:34 Exam Narrative: Exam Narrative: General: Alert and oriented, no acute distress Respiratory: Equal breath rise bilaterally, maintained on room air CV: Well perfused Abdomen: Soft, some tenderness to palpation in the epigastric with no guarding or rebound Const: Vital Signs, click to edit/add: Vital Signs - 24 hr 05/13/24 21:37 05/13/24 22:21 05/13/24 22:22 Temperature 96.5 F L Pulse Rate 55 L 54 L Pulse Rate [Pulse Oximeter] 69 Respiratory Rate 24 Blood Pressure 133/78 Blood Pressure [Le ft Upper Arm] 142/93 H Blood Pressure [Ri ght Arm] Pulse Oximetry 96 98 98 Oxygen Delivery Me thod Room Air 05/13/24 22:30 05/13/24 22:32 05/13/24 22:46 Temperature Pulse Rate 53 L 58 L 46 L Pulse Rate [Pulse Oximeter] Respiratory Rate Blood Pressure 141/66 H Blood Pressure [Le ft Upper Arm] Blood Pressure [Ri ght Arm] Pulse Oximetry 100 100 96 Oxygen Delivery Me thod 05/13/24 22:47 05/13/24 23:00 05/13/24 23:01 Temperature Pulse Rate 53 L 55 L 55 L Pulse Rate [Pulse Oximeter] Respiratory Rate Blood Pressure 128/63 120/68 Blood Pressure [Le ft Upper Arm] Blood Pressure [Ri ght Arm] Pulse Oximetry 94 91 Oxygen Delivery Me thod 05/13/24 23:02 05/13/24 23:28 05/13/24 23:30 Temperature Pulse Rate 60 65 64 Pulse Rate [Pulse Oximeter] Respiratory Rate Blood Pressure Blood Pressure [Le ft Upper Arm] Blood Pressure [Ri ght Arm] Pulse Oximetry 91 93 91 Oxygen Delivery Me thod 05/13/24 23:32 05/13/24 23:45 05/13/24 23:47 Temperature Pulse Rate 58 L 59 L 61 Pulse Rate [Pulse Oximeter] Respiratory Rate 16 Blood Pressure 121/72 116/72 Blood Pressure [Le ft Upper Arm] Blood Pressure [Ri ght Arm] Pulse Oximetry 94 96 91 Oxygen Delivery Me thod Room Air 05/14/24 00:00 05/14/24 00:02 05/14/24 00:02 Temperature Pulse Rate 58 L 50 L 50 L Pulse Rate [Pulse Oximeter] Respiratory Rate Blood Pressure 121/66 121/66 Blood Pressure [Le ft Upper Arm] Blood Pressure [Ri ght Arm] Pulse Oximetry 96 93 93 Oxygen Delivery Me thod 05/14/24 00:02 05/14/24 00:15 05/14/24 02:26 Temperature 96.5 F L Pulse Rate 50 L 58 L Pulse Rate [Pulse Oximeter] 71 Respiratory Rate 16 Blood Pressure 121/66 Blood Pressure [Le ft Upper Arm] 123/74 Blood Pressure [Ri ght Arm] Pulse Oximetry 93 91 91 Oxygen Delivery Me thod Room Air 05/14/24 02:26 05/14/24 02:52 05/14/24 02:52 Temperature 98.0 F 97.5 F L Pulse Rate Pulse Rate [Pulse Oximeter] 71 61 Respiratory Rate 16 16 16 Blood Pressure Blood Pressure [Le ft Upper Arm] 123/74 Blood Pressure [Ri ght Arm] 143/60 H Pulse Oximetry 96 96 Oxygen Delivery Me thod Room Air Room Air 05/14/24 08:00 05/14/24 08:00 05/14/24 11:00 Temperature 97.7 F 97.6 F Pulse Rate Pulse Rate [Pulse Oximeter] 60 60 58 L Respiratory Rate 16 16 18 Blood Pressure Blood Pressure [Le ft Upper Arm] Blood Pressure [Ri ght Arm] 106/52 L 115/51 L Pulse Oximetry 97 96 Oxygen Delivery Me thod Room Air Room Air Results Labs Labs: Abnormal lab results 05/13/24 05/14/24 Range/Units 22:00 07:05 MCHC 31 L (32-36) gm/dL Anion Gap 4 L (7-15) mEq/L Glucose 161 H (60-115) mg/dL Troponin I < 0.01 L (0.01-0.04) ng/mL Urine Ketones Trace A (Negative) Urine Blood Trace-intact A (Negative) Amorphous Sediment Moderate A (None) Diabetes panel 05/13/24 05/14/24 Range/Units 22:00 07:05 Sodium 139 140 (135-149) mmol/L Potassium 3.9 4.2 (3.6-5.1) mmol/L Chloride 107 108 (96-114) mmol/L Carbon Dioxide 21 28 (20-32) mmol/L BUN 17 14 (7-30) mg/dL Creatinine 0.7 0.7 (0.5-1.5) mg/dL Glucose 161 H 102 (60-115) mg/dL Calcium 9.7 8.9 (8.4-10.6) mg/dL AST 19 17 (12-35) U/L ALT 17 15 (4-35) U/L Alkaline Phosphatase 131 (40-150) U/L Total Protein 7.2 (6.0-8.3) g/dL Albumin 4.4 (3.3-5.0) g/dL Calcium panel 05/13/24 05/14/24 Range/Units 22:00 07:05 Calcium 9.7 8.9 (8.4-10.6) mg/dL Albumin 4.4 (3.3-5.0) g/dL Pituitary panel 05/13/24 05/14/24 Range/Units 22:00 07:05 Sodium 139 140 (135-149) mmol/L Potassium 3.9 4.2 (3.6-5.1) mmol/L Chloride 107 108 (96-114) mmol/L Carbon Dioxide 21 28 (20-32) mmol/L BUN 17 14 (7-30) mg/dL Creatinine 0.7 0.7 (0.5-1.5) mg/dL Glucose 161 H 102 (60-115) mg/dL Calcium 9.7 8.9 (8.4-10.6) mg/dL Adrenal panel 05/13/24 05/14/24 Range/Units 22:00 07:05 Sodium 139 140 (135-149) mmol/L Potassium 3.9 4.2 (3.6-5.1) mmol/L Chloride 107 108 (96-114) mmol/L Carbon Dioxide 21 28 (20-32) mmol/L BUN 17 14 (7-30) mg/dL Creatinine 0.7 0.7 (0.5-1.5) mg/dL Glucose 161 H 102 (60-115) mg/dL Calcium 9.7 8.9 (8.4-10.6) mg/dL Total Bilirubin 0.1 0.1 (0.1-1.5) mg/dL AST 19 17 (12-35) U/L ALT 17 15 (4-35) U/L Alkaline Phosphatase 131 (40-150) U/L Total Protein 7.2 (6.0-8.3) g/dL Albumin 4.4 (3.3-5.0) g/dL All other labs normal. Imaging Abdomen CT scan report/results: report reviewed and image reviewed Abdominal ultrasound report/results: report reviewed Progress Note:A&P Assessment and plan (1) Acute cholecystitis: Status: Acute Assessment and Plan: Patient presents with clinical history and workup consistent with acute cholecystitis. Vital signs currently stable. No leukocytosis and LFTs within normal limits. A CT scan does show some pericholecystic fluid between the gallbladder and the liver. An abdominal ultrasound demonstrates gallbladder wall thickening, pericholecystic fluid and prominent common bile duct with no sonographic evidence of choledocholithiasis. I had a detailed conversation with the patient regarding the diagnosis of acute cholecystitis. We discussed the treatment options including observation with diet modification and laparoscopic cholecystectomy. We discussed the risks of surgery (including but not limited to) the risks of bleeding, infection, injury to other structures in the abdomen including bile duct injury, bile leak and conversion to an open operation. We discussed the possibility that the patient's pain not improve with surgery. We discussed the possibility of permanent post-operative diarrhea that may require medical management. Additionally, the conceivably of complications requiring additional surgery or further hospitalization were also discussed including the risks of VT, respiratory failure, stroke and blood clots. The patient voiced an understanding of our conversation, had the opportunity to ask questions, agreed to accept the risks of surgery and asked that we proceed with surgery. -OR for laparoscopic cholecystectomy
--- NOTE | 2024-05-14 15:32 | PC.NURSE ---
End of Shift: Patient pleasant and cooperative, A&O. VSS, afebrile. SpO2 maintained above 90% on RA. Patient reports pain in her abdomen this shift, managed with PRN medication, see MAR. Independent in room. NPO.
[2024-05-14] MEDS: BUPIVACAINE 0.5% 30 ML INJECTION (20:30)
--- NOTE | 2024-05-14 20:54 | PM.GSPRC ---
Operative Note Date of procedure: 05/14/24 Pre-op diagnosis: Acute cholecystitis Post-op diagnosis: Same Type of Procedure: Laparoscopic cholecystectomy Indications: Patient is a 59-year-old female with clinical workup and history consistent with acute cholecystitis. Risks and benefits of operative intervention were discussed at length with the patient. Risks included but was not limited to: Bleeding, infection, risk of damage to surrounding structures, possible need for additional procedures, possible need to convert to an open operation and postoperative complications such as pneumonia, pulmonary emboli or ME. All questions and concerns were addressed with the patient agreeing to proceed. Procedure Description: After discussing the risks and benefits of the procedure, the patient signed informed consent.? The operative site was marked and the patient was brought to the operating room and placed on the operating table in supine position.? Care was taken to pad the patient's pressure points.?? The patient was then intubated by anesthesia.?? The operative site was then prepped and draped in the usual sterile fashion.? A time-out was then performed. Entrance to the abdomen was gained via a 5 mm Visiport in the left upper quadrant. The abdomen was insufflated and briefly surveyed for signs of injury. There was none. 11 mm umbilical port was placed as well as 2 working ports along the right costal margin. Patient was then placed in reverse Trendelenburg position with the right side up. The gallbladder fundus was grasped and retracted cephalad. A small amount of dissection was needed to free omental adhesions from the gallbladder. The infundibulum was grasped. A combination of hook cautery and blunt dissection was used to carefully dissect out the cystic duct and artery until they could clearly be seen entering the gallbladder without any intervening structures. The gallbladder was dissected off the cystic plate to achieve the critical view. A small vein was present running by the artery, a clip was applied proximally and distally on the specimen before was transected with cautery. The cystic duct and artery were each clipped with 2 clips proximally and 1 clip distally and transected with the scissors. The gallbladder was then taken off of the liver bed and removed from the abdomen using an Endo-Catch bag. The gallbladder bed was surveyed for hemostasis. The ports were then removed under direct vision. The umbilical port fascia was closed with 0 Vicryl. The skin was closed with absorbable subcuticular suture. Instrument sponge and needle counts were correct at the end of the case. The patient was then woken and transferred to the PACU in stable condition. Findings: Acute cholecystitis Anesthesia: GETA Surgeon: Diamante Dalton MD Estimated blood loss (mL): 5 Specimen: Gallbladder Condition: stable Disposition: PACU
--- NOTE | 2024-05-14 21:21 | P.ANES_ITS ---
Anesthesia Charges Start Date/Time Anesthesia Start Date: 05/14/24 Anesthesia Start Time: 19:51 Stop Date/Time Anesthesia Stop Date: 05/14/24 Anesthesia Stop Time: 21:09 Summary Emergency: [employer]
[2024-05-14] MEDS: fentaNYL 100 MCG/2 ML inj 50 MCG IVP (21:36)
[2024-05-15 01:00] VITALS: BP 128/59; PULSE 51; RESP 16; TEMP 36.8; O2SAT 93
[2024-05-15 02:00] VITALS: BP 113/58; PULSE 53; RESP 16; TEMP 36.6; O2SAT 91
[2024-05-15 03:00] VITALS: BP 117/59; PULSE 51; RESP 16; TEMP 36.5; O2SAT 90
[2024-05-15 04:00] VITALS: BP 121/68; PULSE 53; RESP 16; TEMP 36.6; O2SAT 93
[2024-05-15] MEDS: LEVOTHYROXINE 100 MCG TABLET PO (06:16)
--- NOTE | 2024-05-15 06:31 | PC.NURSE ---
End of shift: Pt returned to unit from sx @ 2153, accompanied by . Pt was AxOx4 with some drowsiness. Lap sites CDI. Bowel sounds present. Pt denies nausea. Pt stated abdomen pain upon initial assessment that required another dose of hydromorphone,? gave the okay. Wreath Maker continuing to monitor for verbal and nonverbal cues of pain. IV SL. LS CTA, RA. This AM, Pt was up to the bathroom SBA. Pt continent of the bladder. Pt tolerating water at this time, discussed advancing diet and Pt reported no appetite. Blood sugars WNL. Pt appears resting with call light in reach. ?
[2024-05-15] MEDS: ACETAMINOPHEN 325 MG TABLET 650 MG PO (07:48)
[2024-05-15 08:00] VITALS: BP 144/74; PULSE 54; RESP 16; TEMP 36.9; O2SAT 96
[2024-05-15 10:43] VITALS: RESP 16
--- NOTE | 2024-05-15 12:36 | P.DS_ITS ---
DS: Providers Provider Date Seen: 05/15/24 Primary care physician: Chitra Trujillo PA-C Attending Physician on discharge: Diamante Dalton MD DS: Summary Hospital Course Hospital Course: Patient presented to the emergency department with clinical workup in symptoms consistent with acute cholecystitis. She was taken to the operating room for laparoscopic cholecystectomy. Postoperatively she did well with no immediate complications. At the time of discharge he was tolerating regular diet, ambulating independently, pain was well controlled. Time Spent with Patient Time attestation: Total time spent providing and/or coordinating discharge services: Exam Narrative: Exam Narrative: General: Alert and oriented, no acute distress Respiratory: Equal breath rise bilaterally, maintained on room air CV: Well perfused Abdomen: Soft, nontender, it Steri-Strips incisions clean/dry/into Const: Vital Signs, click to edit/add: Vital Signs - 24 hr 05/14/24 15:30 05/14/24 15:30 05/14/24 21:09 Temperature 98.2 F 97.8 F Pulse Rate 58 L Pulse Rate [Pulse Oximeter] 47 L 47 L Respiratory Rate 14 14 14 Blood Pressure 135/73 Blood Pressure [Ri ght Arm] 113/59 L Pulse Oximetry 97 93 Oxygen Delivery Me thod Room Air Room Air Oxygen Flow Rate 05/14/24 21:16 05/14/24 21:22 05/14/24 21:29 Temperature Pulse Rate 55 L 48 L 40 L Pulse Rate [Pulse Oximeter] Respiratory Rate 14 14 14 Blood Pressure 133/96 H 130/62 140/75 H Blood Pressure [Ri ght Arm] Pulse Oximetry 93 98 98 Oxygen Delivery Me thod Room Air Room Air Room Air Oxygen Flow Rate 05/14/24 21:37 05/14/24 21:46 05/14/24 21:53 Temperature 97.4 F L 97.6 F Pulse Rate 51 L 57 L 55 L Pulse Rate [Pulse Oximeter] Respiratory Rate 14 16 16 Blood Pressure 140/70 H 142/77 H 147/68 H Blood Pressure [Ri ght Arm] Pulse Oximetry 96 96 97 Oxygen Delivery Me thod Room Air Room Air Room Air Oxygen Flow Rate 05/14/24 22:05 05/14/24 22:20 05/14/24 22:35 Temperature 97.6 F 97.5 F L 97.6 F Pulse Rate 60 42 L 48 L Pulse Rate [Pulse Oximeter] Respiratory Rate 18 18 16 Blood Pressure 139/71 126/62 135/64 Blood Pressure [Ri ght Arm] Pulse Oximetry 99 99 92 Oxygen Delivery Me thod Room Air Room Air Room Air Oxygen Flow Rate 05/14/24 22:50 05/14/24 23:20 05/14/24 23:50 Temperature 97.6 F 97.7 F 97.7 F Pulse Rate 53 L 48 L 55 L Pulse Rate [Pulse Oximeter] Respiratory Rate 16 16 14 Blood Pressure 126/65 117/65 123/64 Blood Pressure [Ri ght Arm] Pulse Oximetry 92 98 92 Oxygen Delivery Me thod Nasal Cannula Room Air Room Air Oxygen Flow Rate 1 05/15/24 01:00 05/15/24 02:00 05/15/24 03:00 Temperature 98.2 F 97.8 F 97.7 F Pulse Rate 51 L 53 L 51 L Pulse Rate [Pulse Oximeter] Respiratory Rate 16 16 16 Blood Pressure 128/59 L 113/58 L 117/59 L Blood Pressure [Ri ght Arm] Pulse Oximetry 93 91 90 Oxygen Delivery Me thod Room Air Room Air Room Air Oxygen Flow Rate 05/15/24 04:00 05/15/24 08:00 05/15/24 10:43 Temperature 98 F 98.4 F Pulse Rate 53 L Pulse Rate [Pulse Oximeter] 54 L Respiratory Rate 16 16 16 Blood Pressure 121/68 Blood Pressure [Ri ght Arm] 144/74 H Pulse Oximetry 93 96 Oxygen Delivery Me thod Room Air Room Air Oxygen Flow Rate Discharge Plan Discharge Disposition: Home w/ Parent or Adult Discharging Surgeon: Diamante Dalton Follow-Up Appointment: 2 week follow up, NF Prescriptions: New hydrocodone-acetaminophen 5-325 mg tablet 1 tab PO Q6H PRN (Reason: pain) Qty: 15 0RF ondansetron 4 mg tablet,disintegrating 4 mg PO Q6H Qty: 20 0RF senna 8.6 mg capsule 8.6 mg PO DAILY PRN (Reason: constipation) Qty: 90 0RF Continued pravastatin 40 mg tablet 40 mg PO DAILY levothyroxine [Synthroid] 100 mcg tablet 100 mcg PO DAILY metformin 500 mg tablet extended release 24 hr 500 mg PO BID Otezla 30 mg tablet 30 mg PO BID Activity Level: No strenuous activity Activity Detail: Activity as tolerated. Avoid strenuous activity. No lifting greater than 20 lb for 2 weeks. Discharge Diet: Low Fat/Low Cholesterol Diet Detail: Continue on a low-fat diet for the next 2 weeks. After 2 weeks to consider introducing more fatty foods. Patient Instructions: Hydrocodone/Acetaminophen (By mouth), Ondansetron (By mouth), Senna (By mouth), General Anesthesia (DC), Laparoscopic Cholecystectomy (DC), Post-Operative Instructions: Laparoscopic Cholecystectomy Additional Instructions: You were prescribed a narcotic pain medication. In addition you may supplement with Tylenol and/or ibuprofen. Be sure to not exceed greater than 4 g of Tylenol in a 24 hour period. While on narcotic pain medicine please take stool softeners. A prescription of stool softeners has been sent to the pharmacy. Stop if having greater than 2 stools per day. You have Steri-Strips dressings in place, allow these to fall off on their own. Okay to shower starting tomorrow. Do not soak in a bath or swim for 2 weeks. Follow-up with Dr. Dalton in 2-3 weeks. Please call if you are experiencing severe pain, nausea, vomiting, difficulty urinating, fever or not had a bowel movement in 4 days after surgery. Follow-up: Diamante Dalton MD [Staff Physician] - 06/02/24 1:00 pm ([facility] for follow up with Dr. Dalton) Chitra Trujillo PA-C [Primary Care Provider] - Discharge Orders: Discharge Order (Routine); Ordered 05/15/24 Ordered By: Diamante Dalton
--- NOTE | 2024-05-15 13:50 | PC.NURSE ---
End of Shift: Patient pleasant and cooperative, A&O. VSS, afebrile. SpO2 maintained above 90% on RA. Patient reports pain on her abdomen this shift, managed with PRN medication, see MAR. Independent in room. IV removed with tip intact. Discharge instructions provided, all questions answered.
== END 2024-05-15 12:53 | disposition home or self-care (01) ==
LOC: ED 05-14 02:07 → OR 05-14 02:09 → MEDSURG 05-14 02:10
PROVIDERS: Internal Medicine; Emergency Provider Family Medicine; PCP Physician Assistant Medical; Visit Provider Surgery
PROC: 0FT44ZZ Resection of Gallbladder, Percutaneous Endoscopic Approach (ICD-10-PCS; CPT 47562; principal; 2024-05-14 15:45)
DX: K80.12 Calculus of gallbladder with acute and chronic cholecystitis without obstruction (principal); E11.9 Type 2 diabetes mellitus without complications; Z79.84 Long term (current) use of oral hypoglycemic drugs; M54.50 Low back pain, unspecified; E03.9 Hypothyroidism, unspecified; E78.5 Hyperlipidemia, unspecified; L40.50 Arthropathic psoriasis, unspecified
CPT/HCPCS: 47562; 00790; 36415; 74177; 76705; 80048; 80076; 81001; 82247; 82248; 82962; 83690; 84450; 84460; 84484; 85025; 85379; 88304; 93005; 94761; 99140; 99284; 99285; A9270; J0665; J1100; J1171; J1200; J1630; J1885; J2270; J2405; J2543; J2704; J2710; J3010; J7030; Q9967